=== PATIENT | female | born 1955 | race Caucasian/White ===

== ENCOUNTER → 2024-01-18 11:11 | Outpatient (REF) | payer MEDICARE, SELFPAY | LOC: WDC 11:11 | PROVIDERS: ATTENDING PHYSICIAN Obstetrics & Gynecology; FAMILY PHYSICIAN Physician Assistant Medical | DX: Z12.31 Encounter for screening mammogram for malignant neoplasm of breast (principal); Z78.0 Asymptomatic menopausal state; Z13.820 Encounter for screening for osteoporosis | CPT/HCPCS: 77063; 77067; 77080 ==

== ENCOUNTER 2024-06-06 10:07 | Emergency (ER) | payer MEDICARE, SELFPAY ==
[2024-06-06 10:11] VITALS: BP 123/80
--- NOTE | 2024-06-06 11:19 | ED.GENMED ---
History of Present Illness
General
Chief Complaint: Chest Pain
Source: patient
Time Seen by Provider: 06/06/24 11:08
History of Present Illness
History of Present Illness:
69-year-old female with past medical history of hypertension controlled with medications presenting to the emergency department for evaluation after shortly after finishing a stretching workout this morning she started to develop left-sided chest
discomfort/pleurisy just inferior to the left breast, symptoms now much more improved/mostly resolved. Patient describes the pain is like a grasping sensation, radiated towards her back and mostly present only with deep inspiration. Stating that
at rest she is not feeling the pain anymore but when she does take a big deep breath she still feels some of the discomfort. Patient denies any associated shortness of breath, cough, hemoptysis, lower extremity edema, diaphoresis, exertional
dyspnea or orthopnea. Patient states she believes both mother and father had history of cardiac disease but states neither of them had cardiac stents or CABG. Social history was noncontributory. She denies any recent travel or DVT/PE risk factor.
Past History
Past History
ED Past Medical History: HTN
ED Past Surgical History: Other (Eye surgery)
Social History
Tobacco: Non-smoker
Alcohol: Occasional
Drug: None
Personal:
Living: with family
Family History
Family History: Negative Early CAD
Review of Systems
Review of Systems
All Other Systems: ROS reviewed and negative except as documented in HPI and ROS
Phy Exam
Physical Exam
Physical Exam:
GENERAL: Alert , in no apparent distress
HEAD: NCAT
EYE: conjunctiva clear
NECK: Supple
ENT: o/p clr, mmm.
CARDIAC: Regular rate and rhythm, no murmur
LUNGS: Clear breath sounds bilaterally, no acute respiratory distress, no wheezes/rales/rhonchi
CHEST WALL: no focal areas of ttp, no rash
ABDOMEN: soft, non-tender, non distended
NEUROLOGICAL: Alert and oriented
SKIN: Warm and dry, skin intact.
MUSCULOSKELETAL: well perfused. no edema
PSYCH: Normal and appropriate interaction.
Scores
Heart Failure Risk
Heart Failure Risk Score: Not Applicable
Heart Score for Chest Pain Patients
STEMI patient?: No
History: Slightly or Non-Suspicious
ECG: Normal
Age: >/= 65 years
Risk Factors: 1 or 2 Risk Factors
Troponin: </= Normal Limit
Heart Score for Chest Pain Patients: 3
Heart Score Risk: 2.5% MACE over next 6 weeks
Withdrawal Assessment of Alcohol
Withdrawal Assessment Completed?: Not applicable
Course
Orders/Labs/Results
Orders:
Orders
06/06/24 10:09
Electrocardiogram (*1) Urgent
Reason for Study: Chest Pain
EKG- Treatment ONCE
06/06/24 11:18
Cardiac Monitoring- Treatment ONCE
06/06/24 11:19
CR Chest - 2 Views Urgent
Comment:
Reason For Exam: left sided chest pain, pleurisy
06/06/24 11:27
Complete Blood Count/With Diff Urgent
Comprehensive Metabolic Panel Urgent
Troponin I Urgent
06/06/24 14:05
Troponin I Urgent
Abnormal Lab Results
06/06/24
11:27
Sodium 134 L mmol/L
(135-145)
06/06/24 11:27
06/06/24 11:27
Vital Signs
Initial and Last Documented VS:
Initial Vital Signs
Temp Pulse Resp BP Pulse Ox
98.0 F 73 16 123/80 98
06/06/24 10:11 06/06/24 10:11 06/06/24 10:11 06/06/24 10:11 06/06/24 10:11
Last Documented Vital Signs
Temp Pulse Resp BP Pulse Ox
98.0 F 73 18 140/82 98
06/06/24 10:11 06/06/24 14:46 06/06/24 14:46 06/06/24 14:46 06/06/24 10:11
MDM/Problems Addressed
Differential Diagnosis Includes:
Angina, musculoskeletal chest pain/pleurisy, PE considered however patient without risk factors for PE, pneumonia or other infectious etiology less likely given lack of infectious symptoms
MDM/Problems Addressed:
69-year-old female presenting emergency department for gradually improving left-sided chest pain after completing a stretching workout this morning. It is certainly possible patient experienced a strain of the musculature while stretching as the
cause of her pain. She did not have reproducible pain on exam however. Given her age and hypertension will check labs including 3-hour troponin, chest x-ray and reassessment following. She is noting pain is mostly resolved at this time. EKG done
in triage is nonischemic. Anticipate close follow-up with cardiology via the chest pain hotline. Patient in agreement with workup planning.
Chronic conditions affecting care: HTN
*Radiology
Radiology exam reviewed: preliminary read by ED provider (normal CXR)
*Pulse Oximetry
Patient hypoxic: no
*EKG
Interpreted by ED Provider?: Yes
Interpretation: normal
Comparison EKG: no changes
Heart Rate: 66
Rate: normal
Rhythm: sinus
[place]: normal axis
Ischemia: no ischemia
*Parenting Skills Instructor Interpretation
Rate: normal
Rhythm: sinus
*Critical Care Note
Total Time (30-74mins, 75-104mins- exclusive of procedures): Not Applicable
Patient Management
Escalation/DeEscalation of care consider admission/obs:
Patients repeat troponin negative. She is now noting pain worsens with movement as well making suspicion for muscular etiology much more likely. Given her risk factors will still notify chest pain hotline to expedite an outpatient visit. Stable for
discharge home and aware of return precautions
ED Attending Note
-
Portions of this chart may have been created with voice recognition software.� Occasional wrong word or��sound alike� substitutions may have occurred due to the inherent limitations of voice recognition software.
Discharge Plan
Departure
Patient Disposition: Home (Routine Discharge)
Date of Disposition: 06/06/24
Time of Disposition: 14:40
Patient with high blood pressure during this ER visit?: No
Discharge Problem:
Chest pain
Instructions: Chest Pain DCA Follow Up
Prescriptions:
No Action
multivitamin [Daily Multiple] 1 EACH tablet
1 ea PO DAILY
aspirin 81 MG tablet,chewable
81 mg PO DAILY
Biotin
1 tab PO DAILY
Calcium
1 tab PO DAILY
Maxzide
1 tab PO DAILY
Verapamil
1 tab PO DAILY
Referrals:
Sayra Hu PA-C [Family Provider] -
Interventions
Interventions:
*Risk Screen - Suicide Last Done: 06/06/24 11:36
*General Assessment Last Done: 06/06/24 14:46
*Neglect/Abuse Screening Last Done: 06/06/24 11:36
ED- Fall Risk Assessment Last Done: 06/06/24 11:36
*Nursing Disposition Last Done: 06/06/24 14:46
ED- Cardiac Assessment Last Done: 06/06/24 12:23
Discharge Date and Time
Discharge Date/Time: 06/06/24 14:47
Print Language: [id number]
[2024-06-06 11:24] VITALS: BP 132/70
[2024-06-06 11:44] LABS: % Basophils 1.1 % (0-2); % Eosinophils 3.6 % (0-6); % Immature Granulocytes 0.2 % (0-0.5); % Lymphocytes 25.8 % (20.5-51.1); % Monocytes 9.3 % (1.7-9.3); Absolute Basophils 0.1 10^3/uL (0-0.2); Absolute Eosinophils 0.2 10^3/uL (0-0.7); Absolute Lymphocytes 1.7 10^3/uL (1.2-3.4); Absolute Monocytes 0.6 10^3/uL (0.1-0.6); Hematocrit 37.8 % (37.0-47.0); Hemoglobin 13.7 g/dL (12.0-16.0); Mean Corp Hgb Conc. 36.2 g/dL (33.0-37.0); Mean Corpuscular Hgb 30.9 pg (27.0-31.0); Mean Corpuscular Volume 85.3 fL (81.0-99.0); Mean Platelet Volume 9.8 fL (7.4-10.4); Nucleated Red Blood Cells % 0 %; Platelet Count 227 10^3/uL (130-400); Red Blood Cell Count 4.43 10^6/uL (4.20-5.40); Red Cell Dist. Width 12.3 % (11.5-14.5); White Blood Cell Count 6.6 10^3/uL (4.8-10.8)
[2024-06-06 11:58] LABS: ALT (SGPT) 20 U/L (0-35); AST (SGOT) 33 U/L (14-36); Albumin 4.6 g/dl (3.5-5.0); Alkaline Phosphatase 75 U/L (38-126); Blood Urea Nitrogen 13 mg/dl (7-17); Calcium 9.9 mg/dl (8.4-10.2); Carbon Dioxide 28 mmol/L (22-30); Chloride 98 mmol/L (98-107); Glucose 97 mg/dl (70-99); Potassium 4.2 mmol/L (3.5-5.1); Sodium 134 mmol/L (135-145); Total Bilirubin 0.8 mg/dl (0.2-1.3); Total Protein 7.2 g/dl (6.3-8.2); eGFR > 60.00
[2024-06-06 12:07] LABS: Troponin I < 0.012 ng/ml
[2024-06-06 14:38] LABS: Troponin I < 0.012 ng/ml
[2024-06-06 14:45] VITALS: BP 140/82
[2024-06-06 14:46] VITALS: BP 140/82
== END 2024-06-06 14:47 | disposition home or self-care (01) ==
LOC: EMR 10:07
PROVIDERS: Physician Assistant Medical; EMERGENCY PHYSICIAN Emergency Medicine; FAMILY PHYSICIAN Physician Assistant Medical
DX: R07.89 Other chest pain (principal); I10 Essential (primary) hypertension
CPT/HCPCS: 99285; 71046; 80053; 84484; 85025; 93005

== ENCOUNTER → 2024-06-23 09:32 | Outpatient (REF) | payer MEDICARE, SELFPAY | LOC: RCS 09:32 | PROVIDERS: ATTENDING PHYSICIAN Internal Medicine Cardiovascular Disease; FAMILY PHYSICIAN Physician Assistant Medical | DX: R07.89 Other chest pain (principal) | CPT/HCPCS: 93017; 93350 ==

== ENCOUNTER → 2024-08-01 10:09 | Outpatient (REF) | payer MEDICARE, SELFPAY | LOC: HWRAD 10:09 | PROVIDERS: ATTENDING PHYSICIAN Physician Assistant Medical | DX: M54.2 Cervicalgia (principal); M54.41 Lumbago with sciatica, right side; M54.42 Lumbago with sciatica, left side | CPT/HCPCS: 72052; 72110 ==

== ENCOUNTER → 2024-10-11 13:25 | Outpatient (REF) | payer MEDICARE, SELFPAY | LOC: HWRAD 13:25 | PROVIDERS: ATTENDING PHYSICIAN Physician Assistant Medical; REFERRING PHYSICIAN Orthopaedic Surgery | DX: M25.511 Pain in right shoulder (principal) | CPT/HCPCS: 73030 ==

== ENCOUNTER → 2024-10-21 17:48 | Outpatient (REF) | payer MEDICARE, SELFPAY | LOC: PAVMRI 17:48 | PROVIDERS: ATTENDING PHYSICIAN Physician Assistant Medical | DX: M25.511 Pain in right shoulder (principal) | CPT/HCPCS: 73221 ==

== ENCOUNTER → 2025-01-23 10:56 | Outpatient (REF) | payer OTHER, SELFPAY | LOC: WDC 10:56 | PROVIDERS: ATTENDING PHYSICIAN Obstetrics & Gynecology; FAMILY PHYSICIAN Physician Assistant Medical | DX: Z12.31 Encounter for screening mammogram for malignant neoplasm of breast (principal) | CPT/HCPCS: 77063; 77067 ==

== ENCOUNTER → 2025-08-10 10:50 | Outpatient (REF) | payer OTHER, SELFPAY | LOC: HWRAD 10:50 | PROVIDERS: ATTENDING PHYSICIAN Orthopaedic Surgery; FAMILY PHYSICIAN Family Medicine | DX: R22.41 Localized swelling, mass and lump, right lower limb (principal) | CPT/HCPCS: 93971 ==